=== PATIENT | male | born 1995 | race Caucasian/White ===

== ENCOUNTER 2021-02-05 18:06 | Emergency (ER) | payer BC, SELFPAY ==
[2021-02-05] VITALS (8 sets, daily range): BP systolic 119–156; BP diastolic 69–88; PULSE 78–99; RESP 16–18; TEMP 36.7–36.9; O2SAT 95–98; BMI 24.3
--- NOTE | 2021-02-05 18:17 | ECG_ITS ---
APPROVED REPORT Exam: Resting ECG HR:80 bpm ECG Measurements Heart Rate 80 AXES RI 142 P 48 QRSd 76 QRS 38 QT 334 T 42 QTc 385 Conclusion Normal sinus rhythm Normal ECG Electronically signed by : Santino Esparza, 02/06/2021 08:38:30
[2021-02-05 18:29] LABS: Microscopic, Urine URINE MICROSCOPIC (MICROSCOPIC)
[2021-02-05 18:40] LABS: Basophils # 0.1 K/mm3 (0-0.2); Basophils % 1.3 % (0.1-2.0); Eosinophils # 0.9 K/mm3 (0.0-0.4); Eosinophils % 13.2 % (0.1-12.0); Hemoglobin 15.2 g/dL (14.1-18.0); Lymphocytes % 30.7 % (10-50); Mean Corpuscular HGB Conc 32.3 g/dL (31.8-35.4); Mean Corpuscular Hemoglobin 28.6 pg (27.0-31.2); Mean Corpuscular Volume 88.7 fl (80-94); Mean Platelet Volume 7.4 fl (7.4-10.4); Monocytes # 0.6 K/mm3 (0.1-1.0); Monocytes % 8.7 % (1.7-9.3); Neutrophils % 46.1 % (37.0-80.0); Platelet Count 228 K/mm3 (142-424); Red Blood Count 5.29 M/mm3 (4.60-6.20); Red Cell Distribution Width 13.1 % (11.5-17.5); White Blood Count 6.6 K/mm3 (4.8-10.8)
[2021-02-05 18:41] LABS: Appearance,Urine CLEAR (Clear); Bilirubin,Urine Negative (Negative); Blood, Urine Negative (Negative); Color,Urine YELLOW (Yellow); Glucose,Urine (UA) Negative (Negative); Ketones,Urine Negative (Negative); Leukocyte Esterase,Urine Negative (Negative); Nitrate,Urine Negative (Negative); PH,Urine 7.5 (5.0-8.5); Protein,Urine Negative (Negative)
[2021-02-05 18:49] LABS: Chloride 109 mmol/L (98-107)
[2021-02-05 18:50] LABS: Potassium 4.1 mmoL/L (3.5-5.1); Sodium 144 mmol/L (136-145)
[2021-02-05 18:52] LABS: Alanine Aminotransferase 18 U/L (12-78); Alkaline Phosphatase 94 U/L (38-126); Anion Gap 15.1 mEq/L (5-15); Aspartate Amino Transferase 24 U/L (17-59); Bilirubin,Total 0.4 mg/dl (0.2-1.3); Blood Urea Nitrogen 6 mg/dl (9-20); Carbon Dioxide 24 mmol/L (22.0-30.0); Creatinine Clearance Estimated 130 mL/min (50-200); Estimated Glomerular Filt Rate 104 ml/min (>60); GFR (African American) 125 ML/MIN (>60); Glucose 111 mg/dl (74-100)
[2021-02-05 18:53] LABS: Albumin Level 4.6 g/dl (3.5-5.0); Albumin/Globulin Ratio 1.2 (1.1-1.8); Calcium 9.6 mg/dl (8.4-10.2); Globulin 3.7 g/dL (1.3-3.2); Total Protein,Serum 8.3 g/dl (6.3-8.2)
[2021-02-05 18:55] LABS: Acetaminophen < 10 ug/ml (10-30); Ethyl Alcohol < 10 mg/dl (0-10); Salicylate < 1.0 mg/dL (2.0-20.0)
--- NOTE | 2021-02-05 19:37 | PC.NURSE ---
dr. dempsey at bedside
--- NOTE | 2021-02-05 19:40 | HMH.EDGENADL ---
ED Disposition Condition on Discharge: Good - Critical Care Critical Care Time: No <Austin Millard - Last Filed: 02/05/21 20:05> <Keith Paul - Last Filed: 02/05/21 21:23> Clinical Impression: Suicidal ideation Disposition: [facility]fer [facility] Referrals: Keith Paul MD [Primary Care Provider] - Attestation: On 02/05/21, the high probability of a clinically significant, sudden or life threatening deterioration of the following system(s) required my full and direct attention, intervention and personal management. The time I documented below is in addition to time spent performing reported procedures but includes the following listed in this critical care notation. Medical Decision Making - [place]lin Inquiry Pt receiving controlled substance: No - Lab Data Lab results reviewed: Yes: I reviewed the patient's lab results. Result diagrams: 02/05/21 18:20 02/05/21 18:20 <Austin Millard - Last Filed: 02/05/21 20:05> - Lab Data Result diagrams: 02/05/21 18:20 02/05/21 18:20 <Keith Paul - Last Filed: 02/05/21 21:23> Vital Signs: 02/05/21 18:07 02/05/21 18:42 02/05/21 19:07 Temperature 98.0 F Temperature Source Oral Pulse Rate [Right Radial] 99 H 78 87 Respiratory Rate 18 17 Blood Pressure [Right Arm] 156/86 H 130/88 120/78 Blood Pressure Mean [Right Arm] 109 102 92 Blood Pressure Source [Right Arm] Automatic Cuff Automatic Cuff Automatic Cuff Blood Pressure Position [Right Arm] Sitting Sitting Supine 02 Sat by Pulse Oximetry 97 98 98 Oxygen Delivery Method Room Air Room Air Room Air 02/05/21 19:30 Temperature Temperature Source Pulse Rate [Right Radial] 79 Respiratory Rate 17 Blood Pressure [Right Arm] 122/69 Blood Pressure Mean [Right Arm] 86 Blood Pressure Source [Right Arm] Automatic Cuff Blood Pressure Position [Right Arm] Supine 02 Sat by Pulse Oximetry 98 Oxygen Delivery Method Room Air - Lab Data Lab Results 02/05/21 18:20: WBC 6.6, RBC 5.29, Hgb 15.2, Hct 47.0, MCV 88.7, MCH 28.6, MCHC 32.3, RDW 13.1, Plt Count 228, MPV 7.4, Neut % (Auto) 46.1, Lymph % (Auto) 30.7, [place] % (Auto) 8.7, Eos % (Auto) 13.2 H, Baso % (Auto) 1.3, Neut # (Auto) 3.0, Lymph # (Auto) 2.0, [place] # (Auto) 0.6, Eos # (Auto) 0.9 H, Baso # (Auto) 0.1 02/05/21 18:20: Sodium 144, Potassium 4.1, Chloride 109 H, Carbon Dioxide 24, Anion Gap 15.1 H, BUN 6 L, Creatinine 0.90, Estimated Creat Clear 130, Estimated GFR 104, Est GFR ( Amer) 125, Glucose 111 H, Calcium 9.6, Total Bilirubin 0.4, AST 24, ALT 18, Alkaline Phosphatase 94, Total Protein 8.3 H, Albumin 4.6, Globulin 3.7 H, Albumin/Globulin Ratio 1.2, Salicylates < 1.0 L, Acetaminophen < 10 L 02/05/21 18:20: Plasma/Serum Alcohol < 10 02/05/21 18:25: Urine Color Yellow, Urine Appearance Clear, Urine pH 7.5, Ur Specific [place] 1.020, Urine Protein Negative, Urine Glucose (UA) Negative, Urine Ketones Negative, Urine Blood Negative, Urine Nitrate Negative, Urine Bilirubin Negative, Urine Urobilinogen 1.0, Ur Leukocyte Esterase Negative, Urine RBC None, Urine WBC None, Ur Squamous Epith Cells None, Urine Bacteria Trace 02/05/21 18:25: Urine Opiates Screen Negative, Urine Methadone Screen Negative, Ur Barbituates Screen Negative, Ur Phencyclidine Scrn Negative, Ur Amphetamines Screen Negative, U Benzodiazepines Scrn Negative, Urine Cocaine Screen Negative, U Marijuana (THC) Screen Negative - ECG Data Tracing #1 EKG interpreted by Austin Millard MD: Rhythm: sinus Rate: 80 [place]: normal Ectopy: none Conduction: normal ST Segment Changes: none T Wave Changes: none Q Waves: none No evidence of acute ischemia or injury (Austin Millard) Medical Decision Narrative: Plan is to send to [facility] on an involuntary hold. (Austin Millard) General Adult HPI - General Mode of Arrival: EMS Limitations: No Limitations Description of Symptoms (Recalled from ER Triage Doc. by RN): Pt reports thoughts SI. Pt states he d
[2021-02-05 19:58] LABS: Bacteria,Urine Trace /lpf
[2021-02-05 21:09] LABS: Barbiturates Screen,Urine Negative ng/ml (<200)
[2021-02-05 21:10] LABS: Benzodiazepines Screen,Urine Negative ng/ml (<200)
[2021-02-05 21:11] LABS: Amphetamine/Metha Screen,Urine Negative ng/ml (<1000); Cannabinoid Screen,Urine Negative ng/ml (<50)
[2021-02-05 21:12] LABS: Cocaine Screen,Urine Negative ng/ml (<300); Methadone Screen,Urine Negative ng/ml (<300)
[2021-02-05 21:13] LABS: Opiate Screen,Urine Negative ng/ml (<300)
[2021-02-05 21:14] LABS: Phencyclidine Screen,Urine Negative ng/ml (<25)
--- NOTE | 2021-02-05 21:29 | PC.NURSE ---
called Judge Herrera at 2021. Faxed paperwork over to him via EMAIL @ [email or web address] shortly after speaking with him on the phone. [facility] office just arrived and transported pt to [facility]
== END 2021-02-05 22:06 ==
PROVIDERS: Emergency Provider Emergency Medicine; PCP Emergency Medicine
DX: R45.851 Suicidal ideations (principal); F32.9 Major depressive disorder, single episode, unspecified
CPT/HCPCS: 80053; 80305; 80329; 81001; 85025; 93005; 99284